=== PATIENT | male | born 1930 | race Caucasian/White ===

== ENCOUNTER → 2017-04-02 | Outpatient (CLI) | payer MEDICARE, OTHER ==
[~2017-04-02] MED LIST: ASPIRIN325 MG PO; BENADRYL25 MG PO; CARAFATE1 GM PO; COLACE100 MG PO; HYTRIN UD5 MG PO; LIPITOR40 MG PO; LOPRESSOR25 MG PO; PRILOSEC20 M1 PO; PRINIVIL10 MG PO; PROSCAR5 MG PO; PROTONIX40 MG PO; RANEXA ER500 MG PO; TYLENOL325 MG PO; VASOTEC2.5 MG PO; ZADITOR5 ML OPHTH; ZOCOR
== END ==
LOC: GKIC 09:48
DX: M25.511 Pain in right shoulder (principal); R53.1 Weakness